=== PATIENT | female | born 1950 | race Caucasian/White ===

== ENCOUNTER 2017-05-18 23:42 | Inpatient (IN) ==
--- NOTE | 2017-05-19 00:25 | Emergency Department Note ---
Disposition Clinical Impression: Acute electrocardiogram changes, Choledocholithiasis, Cholecystitis, Transaminitis, Alcohol abuse Pancreatitis Qualifiers: Chronicity: acute Pancreatitis type: biliary Acute pancreatitis complication: unspecified Qualified Code(s): K85.10 - Biliary acute pancreatitis without necrosis or infection Disposition: Admitted As Inpatient Condition: Fair Chest Pain HPI - General Chief Complaint: ED Chest Pain Stated Complaint: chest pain Time Seen by Provider: 05/19/17 00:12 Source: patient, family Mode of arrival: private vehicle Limitations: no limitations Vital Signs Reviewed: Yes Nursing Notes Reviewed: Yes - History of Present Illness HPI Narrative: 67-year-old female history of alcohol abuse who presents to the ER with a chief complaint of chest pain. Patient reports pain began at 7:30 this evening. It started roughly half an hour after eating. She thought it might be reflux but it continued. States that the pain is at the bottom of her sternum and goes underneath both breasts and into her shoulders. Pain is somewhat reproducible on exam but still hurts whenever not pressing. States she felt lightheaded when it started area no history of cardiac disease. No other complaints. Pt complaint: chest pain Onset (ago): hour(s) Time: 19:30 Duration: constant Onset: after eating Pain Location: substernal Severity scale (1-10): 8 Quality: aching Pain Radiation: other (Shoulder) Improves with: nothing Worsens with: nothing Associated symptoms: Reports: dyspnea Treatments prior to arrival chest pain: none - Related Data On Oral Contraceptives: No Allergies Allergy/AdvReac Type Severity Reaction Status Date / Time No Known Allergies Allergy Verified 05/18/17 23:52 All systems ED: reviewed and negative except as stated. Cardiovascular: Reports: chest pain Respiratory: Denies: dyspnea Gastrointestinal: Denies: abdominal pain, nausea, vomiting Chest Pain PMH - Past Medical History Medical history: Reports: other Psychiatric history: Reports: depression - Social History Smoking Status: Former smoker Alcohol use: Reports: heavy Drug use: Reports: none Physical Exam - General Limitations: no limitations General appearance: alert, in no apparent distress - Head Head exam: atraumatic, normocephalic - Eye Eye exam: Present: normal appearance - ENT ENT exam: normal exam - Neck Neck exam: Present: normal inspection, full ROM - Chest Chest inspection: Present: normal inspection, symmetric chest wall rise - Respiratory Respiratory exam: Present: normal lung sounds bilaterally - Cardiovascular Cardiovascular exam: Present: regular rate, normal rhythm, normal heart sounds - Abdominal Exam Abdominal exam: Present: soft, Non-Tender. Absent: tenderness - Extremities Exam Extremities exam: Present: normal inspection, full ROM - Expanded Upper Extremity Exam Shoulder exam: Present: normal inspection, full ROM Arm exam: Present: normal inspection, full ROM Elbow exam: Present: normal inspection, full ROM Forearm/Wrist exam: Present: normal inspection, full ROM Hand exam: Present: normal inspection, full ROM - Expanded Lower Extremity Exam Hip/Pelvis exam: Present: normal inspection, full ROM Upper leg exam: Present: normal inspection, full ROM Knee exam: Present: normal inspection, full ROM Lower leg exam: Present: normal inspection, full ROM Ankle exam: Present: normal inspection, full ROM Foot/toe exam: Present: normal inspection, full ROM - Skin Skin exam: Present: warm, dry Course Course Narrative: Patient seen and examined. Repeat EKG due to concern for elevations. STEMI alert called at 12:16. - Reevaluation(s) Reevaluation #1: Interventional cardiology has been paged through the paging center. Time: 00:25 Reevaluation #2: Spoke with lab to see one troponin would be resulted. They report within 10-15 minutes. Time: 01:05 - Consultations Consultation #1: Spoke with the on-call inspector subassemblies Dr. Martinez. Sent the EKGs for interpretation. He requests to have the EKG repeated with the patient laying flat. Time: 00:30 Consultation #2: Spoke with Dr. Martinez after sending EKG with the patient laying flat. Patient's pain has changed from a 9 to an 8. Patient receiving a second sublingual nitroglycerin. We discussed the patient's presentation and inclination for ACS. She does have several confounding factors including postprandial onset of symptoms, atypical pain as well as some reproducibility. He recommends to continue the trial of nitroglycerin and give 250 mL bolus and call back in 10 minutes. Time: 00:56 Consultation #3: Spoke again with Dr. Martinez after results of troponin which is normal. Recommends GI cocktail and serial troponins. Admission to the hospitalist service with cardiology consultation. Additional Consultation(s): I spoke with the on-call surgeon Dr. Reed. Discussed the patient's history exam imaging and labs. CT with cholecystitis, choledocholithiasis and pancreatitis. Agreeable to see the patient in consultation. Vital Signs Temperature 98.1 F 05/18/17 23:46 Pulse Rate 80 05/18/17 23:46 Respiratory Rate 16 05/18/17 23:46 Blood Pressure 93/67 05/18/17 23:46 O2 Sat by Pulse Oximetry 98 05/18/17 23:46 Temperature 99.1 F 05/19/17 05:00 Pulse Rate 98 05/19/17 05:00 Respiratory Rate 18 05/19/17 05:16 Blood Pressure 129/82 05/19/17 05:16 O2 Sat by Pulse Oximetry 97 05/19/17 05:00 Oxygen Delivery Oxygen Delivery Room Air Chest Pain - MDM Narrative Medical decision making narrative: 67-year-old female presents to the ER due to chest pain. Started after eating this evening. STEMI alert was called as she had EKG changes from her previous. Case was discussed numerous times with the inspector subassemblies. Patient's troponin was initially resulted as normal and STEMI alert was canceled. Her pain did not resolve with nitroglycerin. During her workup she is noted to have a transaminitis as well as an elevated lipase and bilirubin. CT demonstrates cholecystitis, choledocholithiasis as well as pancreatitis. Case discussed with general surgery who will see in consultation. Admitted to the hospitalist service. - Lab Data Lab results reviewed: Yes I reviewed the patient's lab results. Result diagrams: 05/19/17 00:27 05/19/17 00:27 Lab Results 05/19/17 05/19/17 05/19/17 Range/Units 00:27 00:27 00:27 WBC 8.1 (4.3-11.1) K/mcL RBC 3.97 (3.82-4.97) M/mcL Hgb 12.7 (11.5-15.4) g/dL Hct 37.5 (35.3-44.9) % MCV 94.5 (83.0-100.0) fL MCH 32.0 (28.0-33.3) pg MCHC 33.9 (31.6-35.5) g/dL RDW 11.8 (11.5-14.5) % Plt Count 123 L (140-400) K/mcL MPV 8.4 L (9.4-12.4) fL Immature Gran % 0.7 (0-4) % Seg Neutrophils % 90.6 % Lymphocytes % 5.0 % Monocytes % 3.4 % Eosinophils % 0.1 % Basophils % 0.2 % Neutrophils # 7.3 (1.6-8.9) K/mcL Lymphocytes # 0.4 L (0.6-4.6) K/mcL Monocytes # 0.3 (0.0-1.3) K/mcL Eosinophils # 0.0 (0.0-0.6) K/mcL Basophils # 0.0 (0.0-0.2) K/mcL Immature Plt Fraction 1.8 (1.1-6.1) % PT (9.4-12.1) Seconds INR APTT (26.0-36.0) Seconds Sodium 132 L (136-145) mEq/L Potassium 2.7 L (3.5-5.1) mEq/L Chloride 94 L (98-107) mEq/L Carbon Dioxide 28 (23-29) mEq/L BUN 12 (8-23) mg/dL Creatinine 0.67 (0.60-1.20) mg/dL Est GFR ( Amer) > 60 (> 60) Est GFR (Non-Af Amer) > 60 (> 60) BUN/Creatinine Ratio 18 (6-26) Glucose 158 H (70-105) mg/dL Calculated Osmolality 277 L (280-300) Calcium 9.0 (8.6-10.3) mg/dL Total Bilirubin 2.7 H (0.3-1.0) mg/dL Direct Bilirubin 1.8 H (0.0-0.2) mg/dL Indirect Bilirubin 0.9 (0.0-1.2) mg/dL AST 405 H (13-39) Units/L ALT 155 H (7-52) Units/L Alkaline Phosphatase 118 H (34-104) Units/L Troponin I < 0.03 (< 0.04) ng/mL Serum Total Protein 6.4 (6.4-8.9) g/dL Albumin 3.9 (3.5-5.7) g/dL Globulin 2.5 (2.4-3.5) g/dL Albumin/Globulin Ratio 1.6 (1.1-2.2) Lipase > 1800 H (11-82) Units/L Ethyl Alcohol < 10 (0-10) mg/dL 18 05/19/17 Range/Units 00:27 02:07 WBC (4.3-11.1) K/mcL RBC (3.82-4.97) M/mcL Hgb (11.5-15.4) g/dL Hct (35.3-44.9) % MCV (83.0-100.0) fL MCH (28.0-33.3) pg MCHC (31.6-35.5) g/dL RDW (11.5-14.5) % Plt Count (140-400) K/mcL MPV (9.4-12.4) fL Immature Gran % (0-4) % Seg Neutrophils % % Lymphocytes % % Monocytes % % Eosinophils % % Basophils % % Neutrophils # (1.6-8.9) K/mcL Lymphocytes # (0.6-4.6) K/mcL Monocytes # (0.0-1.3) K/mcL Eosinophils # (0.0-0.6) K/mcL Basophils # (0.0-0.2) K/mcL Immature Plt Fraction (1.1-6.1) % PT 10.7 (9.4-12.1) Seconds INR 1.0 APTT 20.5 L (26.0-36.0) Seconds Sodium (136-145) mEq/L Potassium (3.5-5.1) mEq/L Chloride (98-107) mEq/L Carbon Dioxide (23-29) mEq/L BUN (8-23) mg/dL Creatinine (0.60-1.20) mg/dL Est GFR ( Amer) (> 60) Est GFR (Non-Af Amer) (> 60) BUN/Creatinine Ratio (6-26) Glucose (70-105) mg/dL Calculated Osmolality (280-300) Calcium (8.6-10.3) mg/dL Total Bilirubin (0.3-1.0) mg/dL Direct Bilirubin (0.0-0.2) mg/dL Indirect Bilirubin (0.0-1.2) mg/dL AST (13-39) Units/L ALT (7-52) Units/L Alkaline Phosphatase (34-104) Units/L Troponin I < 0.03 (< 0.04) ng/mL Serum Total Protein (6.4-8.9) g/dL Albumin (3.5-5.7) g/dL Globulin (2.4-3.5) g/dL Albumin/Globulin Ratio (1.1-2.2) Lipase (11-82) Units/L Ethyl Alcohol (0-10) mg/dL - Radiology Data Radiology results reviewed: Yes I reviewed the patient's radiology results. Chest X-Ray 05/19/17 00:01 IMPRESSION: 1. No acute cardiopulmonary disease. D/ / Luis Miguel Reardon MD / Luis Miguel Reardon MD Interpreting Provider: Luis Miguel Reardon MD - EKG Data EKG attestation: Yes I reviewed and interpreted this EKG. EKG results narrative: EKG demonstrates sinus rhythm with a rate of 80 bpm. Left axis deviation. Normal intervals. Normal R-wave progression. There are ST elevations in leads V1 and V2. No ST depressions. Changes from previous EKG include ST elevations in the anterior leads from 03/11/01. Repeat EKG at 00:16 demonstrates sinus rhythm with a rate of 82 bpm. Left axis deviation. Worsening ST elevations in the anterior leads of V1 and V2. No ST depressions. STEMI Heart Score - Score History: Slightly Suspicious EKG: Non Specific repolarisation Disturbance Age: Greater than 65 Risk Factors: No risk factors known Troponin: Less than normal limit HEART Score Total: 3 Critical Care Time Critical Care Time: Yes Total Critical Care Time: 60 Attestation: Critical care performed: Time is exclusive of separately billable procedures. Time includes: direct patient care, patient reassessment, coordination of patient care, interpretation of data (laboratory data, radiology data, and respiratory data), review of patient's medical records, medical consultation and documentation of patient care. Procedures included in critical care time: Procedures excluded from critical care time: S.B.A.R. - S.B.A.R. Situation: Demographics, MOA Background: Presenting Complaint, Relevant PMH, Meds, & Allergies Assessment: Course and respsone to treatment, Exam Concerns, Patient/Family Expectation, Pertinant Lab Results Recommendation: Barrier(s) to disposition, Recommendation based on pending studies, treatments, or consults S.B.A.R. Report Given to: Dr. Callie Marrero Repor Time: 04:21 Attestation Statement - Attestation Attestation: I, Jose Delgadillo MD, personally evaluated this patient and discussed their management with the resident physician. I reviewed the resident's note and agree with the documented findings, medical decision making, and plan of care. 67-year-old female presents to the emergency Department by private vehicle with a complaint of bilateral lower chest pain which started about 4-40 Hours prior to arrival. Pain started about a half hour after eating dinner. Patient really unable to describe the pain. It is in the lower chest and radiates under the breast bilaterally. Also to the back. There has been some mild nausea but no vomiting. No diaphoresis however patient states that earlier in the day she had a brief episode of diaphoresis. No palpitations. No shortness of breath. No prior history of any heart disease. Patient is not on any medications. She is a nonsmoker. No history of diabetes or hypertension. She states her blood pressure normally runs low. She has alcoholic and states that about a week ago she "fell off the wagon" and drank a lot over a 3 or 4 day period. She has not had any alcohol for about the past 3 days. On examination patient is a well-developed well-nourished well-appearing elderly female in no acute distress. She is alert and oriented 3. There is no cyanosis or diaphoresis. Chest is nontender to palpation. Breath sounds are decreased but equal bilaterally with no rales or wheezes noted. Heart regular rate and rhythm. Abdomen soft and nontender with normal bowel sounds. Labs reviewed. Chest x-ray negative. Initial EKG in triage shows ST segment elevations in V1 and V2 which appear acute and are not present on a previous EKG although the prior EKG is from about 16 years ago. Patient was immediately brought back to a bed and a repeat EKG obtained which confirms the STEMI changes in V1 and V2 and in fact they appear worse than the initial EKG. A STEMI alert was called. The inspector subassemblies has not responded to the initial STEMI alert and was re-paged. After responding he was sent the EKGs for evaluation. He requested a 250 mL bolus and further nitroglycerin and obtain an EKG with patient supine. This was done. Catheter lab team showed up in the emergency Department take patient to [facility] however we are still awaiting the guide changer final decision. After an extended period the guide changer recommended serial troponins and admission by the hospitalist and the STEMI alert was canceled. Further workup revealed pancreatitis with elevated hepatic enzymes. A CT of the abdomen and pelvis was obtained and showed cholelithiasis and choledocholithiasis with acute cholecystitis, biliary ductal dilation, and subtle findings suggesting acute pancreatitis. Dr. Graham discussed with the surgeon on-call, Dr. Reed. The hospitalist, Dr. Ledesma , was consulted and accepted admission of the patient.
[2017-05-19] MEDS ORDERED: Aspirin 325 MG TABLET PO ONE (00:31)
[2017-05-19] MEDS ORDERED: *HR* Ticagrelor 90 MG TABLET PO ONE (00:31)
[2017-05-19 00:34] LABS: Monocytes % 3.4 %; Segmented Neutrophils % 90.6 %
[2017-05-19 00:36] LABS: Basophils % 0.2 %; Eosinophils % 0.1 %; Hematocrit 37.5 % (35.3-44.9); Hemoglobin 12.7 g/dL (11.5-15.4); Immature Granulocytes % 0.7 % (0-4); Immature Platelets 1.8 % (1.1-6.1); Lymphocytes # 0.4 K/mcL (0.6-4.6); Mean Corpuscular HGB Conc 33.9 g/dL (31.6-35.5); Mean Corpuscular Volume 94.5 fL (83.0-100.0); Mean Platelet Volume 8.4 fL (9.4-12.4); Monocytes # 0.3 K/mcL (0.0-1.3); Neutrophils # 7.3 K/mcL (1.6-8.9); Platelet Count 123 K/mcL (140-400); Red Blood Count 3.97 M/mcL (3.82-4.97); Red Cell Distribution Width 11.8 % (11.5-14.5)
[2017-05-19] MEDS: Nitroglycerin 0.4 MG TAB.SUBL SL PRN ×4 (00:37→01:14)
[2017-05-19] MEDS ORDERED: *HR* Midazolam HCl 5 MG/5 ML VIAL IVP ONE (00:42)
[2017-05-19] MEDS ORDERED: *HR* Heparin 10,000 UNIT/10 ML VIAL ONE (00:43)
[2017-05-19] MEDS ORDERED: ISOVUE-370 200 ML INFUS..BTL IV ONE ×2 (00:43→00:47)
[2017-05-19] MEDS ORDERED: Heparin 1,000 UNITS/500 mL 500 ML ONE (00:43)
[2017-05-19] MEDS ORDERED: Nitroglycerin 1,000 MCG/10 ML VIAL IV ONE (00:43)
[2017-05-19] MEDS ORDERED: 0.9 % Sodium Chloride 2,000 ML ONE (00:43)
[2017-05-19 00:48] LABS: Prothrombin Time 10.7 Seconds (9.4-12.1)
[2017-05-19 00:51] LABS: Alanine Aminotransferase 155 Units/L (7-52); Albumin 3.9 g/dL (3.5-5.7); Albumin/Globulin Ratio 1.6 (1.1-2.2); Alkaline Phosphatase 118 Units/L (34-104); Aspartate Amino Transferase 405 Units/L (13-39); BUN/Creatinine Ratio 18 (6-26); Bilirubin,Direct 1.8 mg/dL (0.0-0.2); Bilirubin,Indirect 0.9 mg/dL (0.0-1.2); Bilirubin,Total 2.7 mg/dL (0.3-1.0); Blood Urea Nitrogen 12 mg/dL (8-23); Carbon Dioxide 28 mEq/L (23-29); Chloride 94 mEq/L (98-107); Globulin 2.5 g/dL (2.4-3.5); Glucose 158 mg/dL (70-105); Osmolality,Calculated 277 (280-300); Potassium 2.7 mEq/L (3.5-5.1); Sodium 132 mEq/L (136-145); Total Protein 6.4 g/dL (6.4-8.9); eGFR For African Americans > 60 (> 60); eGFR For Non-African Americans > 60 (> 60)
[2017-05-19] MEDS ORDERED: 0.9 % Sodium Chloride 250 ML IVC ONE (00:54)
[2017-05-19 00:59] LABS: Activated Partial Thrombo Time 20.5 Seconds (26.0-36.0)
[2017-05-19 01:02] LABS: Ethanol < 10 mg/dL (0-10)
[2017-05-19] MEDS ORDERED: Ondansetron 4 MG/2 ML VIAL IVP ONE (01:06)
[2017-05-19] MEDS ORDERED: GI Cocktail 40 ML EACH PO ONE (01:52)
[2017-05-19] MEDS ORDERED: *HR* Morphine 2 MG/ML SYRINGE IVP ONE ×2 (02:14)
[2017-05-19 02:51] LABS: Lipase > 1800 Units/L (11-82)
[2017-05-19] MEDS ORDERED: Piperacillin/Tazobactam 3.375 GM in 0.9 % Sodium Chloride Mini Bag 100 ML IVPB ONE (04:21)
[2017-05-19] MEDS ORDERED: 0.9 % Sodium Chloride 1,000 ML IVC SCH (04:30)
[2017-05-19] MEDS ORDERED: Naloxone 0.4 MG/ML INJ IVP PRN (05:26)
--- NOTE | 2017-05-19 05:35 | Internal Med History&Physical ---
Date of Encounter: 05/19/17 Time of Encounter: 05:00 Assessment and Plan (1) Cholecystitis Current visit: Yes Status: Acute Secondary to cholelithiasis. Surgery consulted from ED, appreciate assistance - Continue zosyn started in ED - Gen Surgery consulted, appreciate assistance - Patient NPO (2) Pancreatitis Current visit: Yes Status: Acute Lipase markedly elevated. Secondary to cholelithiasis and component of alcoholism. - Aggressive IV fluid resuscitation - 500ccs/6 hours then 250ccs/hr thereafter - NPO - IV morphine PRN pain Qualifiers: Chronicity: acute Pancreatitis type: biliary Acute pancreatitis complication: unspecified Qualified Code(s): K85.10 - Biliary acute pancreatitis without necrosis or infection (3) Acute electrocardiogram changes Current visit: Yes Status: Acute ST elevations in V1 and V2 which are new from previous EKG. Pain secondary to pancreatitis/cholecystitis and troponin undetectable x2 - Cardiology consulted from ED, appreciate assistance (4) Transaminitis Current visit: Yes Status: Acute Secondary to cholelithiasis/pancreatits/alcohol abuse - Trend LFTs (5) Alcohol abuse Current visit: Yes Status: Acute CIWA protocol ordered. (6) Hypokalemia Current visit: Yes Status: Acute K 2.7. Check magnesium level and replace if low. - IV KCl 40meq ordered, will need recheck and continued replacement throughout the day Internal Medicine - H&P: HPI Chief complaint: Epigastric pain Admitted From: Emergency Dept Plans for Post Hospital Care: Home History of present illness: Ms. Montiel is a 67 year old female with history of alcohol abuse who presented to the ED this evening with complaint of severe epigastric/RUQ pain which developed shortly after eating dinner. She states that she had been sober for some time, but then over the past few weeks began drinking alcohol again. Yesterday she ate macaroni and cheese for dinner and shortly afterwards began to have severe RUQ and epigastric pain. She presented to the ED where there was concern for ST elevations on V1 and V2 and STEMI alert was called. Troponin was normal and pain did not improve with nitro. Her lipase was found to be markedly elevated and the CT abdomen and pelvis showed cholecystitis, choledocholithiasis and mild pancreatitis. She was given morphine which improved her pain from 9/10 to 4/10. She denies history of cardiac or pulmonary disease. She follows with a PCP and states that she is overall healthy. She has not had fever or chills. She denies history of pancreatitis in the past. Past Med Surg Social Fam HX - Past Medical History Medical history: other Psychiatric history: depression - Social History Smoking Status: Former smoker Smokeless Tobacco Status: No Alcohol use: heavy Drug use: none - Family History Mother Living Status: Age at : 71 Cause of : Cancer Hx Family Cancer: Yes Internal Medicine - H&P: Meds 3 Allergy/AdvReac Type Severity Reaction Status Date / Time No Known Allergies Allergy Verified 05/18/17 23:52 All Systems PM: A 10-system review of systems was performed and is negative for pertinent findings except as documented above in the HPI. - Constitutional Vitals: Temp Pulse Resp BP Pulse Ox 99.1 F 98 18 129/82 97 05/19/17 05:00 05/19/17 05:00 05/19/17 05:16 05/19/17 05:16 05/19/17 05:00 General appearance: Present: A&O X 3, pleasant, no acute distress - Head Head exam: Present: atraumatic - Eye Eye exam: Present: EOMI - ENT ENT exam: Present: mucous membranes dry - Neck Neck exam general surgery: Present: supple - Respiratory Respiratory exam: Present: CTAB - Cardiovascular Cardiovascular exam: Present: RRR. Absent: diastolic murmur, gallop, rubs, systolic murmur - GI/Abdominal GI/Abdominal exam: Present: normal bowel sounds, soft, tenderness. Absent: distended Additional comments: Tender right upper quadrant and epigastric area. - Extremities Exam Extremities exam: Absent: pedal edema - Neurological Exam Neurological exam: Present: no focal deficits - Skin Skin exam: Absent: rash Internal Med - H&P Results - Labs CBC & Chem 7: 05/19/17 00:27 05/19/17 00:27
[2017-05-19] MEDS: 0.9 % Sodium Chloride 1,000 ML IVC SCH ×6 (05:54→23:21)
[2017-05-19] MEDS ORDERED: *HR* LORazepam 2 MG/ML VIAL IVP PRN ×3 (06:09)
[2017-05-19] MEDS: *HR* Morphine 2 MG/ML SYRINGE IVP PRN ×2 (07:55→13:57)
--- NOTE | 2017-05-19 11:15 | Cardiology Consult Note ---
Date of Encounter: 05/19/17 Time of Encounter: 11:13 Assessment and Plan (1) Abnormal ECG Current Visit: Yes Status: Acute 67-year-old female presents with complaints of upper abdominal pain. CT abdomen and pelvis streets findings suggestive of acute cholecystitis and possible pancreatitis. ECG performed, which demonstrates a possible right ventricular conduction delay with associated ST-T changes, suggested of Brugada pattern. Patient denies any history of palpitations. She has had 3 syncopal events in her life. ECG findings appear to be unrelated to patient's acute problem, which appears to be acute cholecystitis. Recommended echocardiogram. If no significant findings, then no further cardiac workup appears to be necessary at this time. Recommend followup with EP/Dr. Juan Goel as outpatient. Of note, patient's functional capacity prior to this illness was good. Able to perform normal activities without chest pain. Discussion w patient/family: The assessment and plan as outlined above was discussed with the patient and/or family members who expressed understanding and agreement. All questions were answered. Thank you for involving us in the care of your patient. Please call with any questions. History of Present Illness Consult date: 05/19/17 Requesting physician: Marylu Patiño Consult reason: Abnormal ecg Chief complaint: Abnormal ecg History of present illness: Ms. Montiel is a 67 year old female with no known history of heart disease. States she developed sudden pain across her upper abdomen after eating yesterday. She denies pain in her chest. Presented to the ER with these complaints. ECG performed, which demonstrated abnormalities in V1 and V2. Findings reviewed with landfill grader. Serial troponin regimens are negative. Patient reports abdominal pain better, but reproducible with palpation. No chest pain reported. She has never required a stress test or cardiac catheterization in the past. Past Med Surg Social Fam HX - Past Medical History Medical history: other Psychiatric history: depression - Social History Smoking Status: Former smoker Smokeless Tobacco Status: No Alcohol use: heavy Drug use: none - Family History Mother Living Status: Age at : 71 Cause of : Cancer Hx Family Cancer: Yes Medications and Allergies 3 Allergy/AdvReac Type Severity Reaction Status Date / Time No Known Allergies Allergy Verified 05/18/17 23:52 All Systems Review: A 10-system review of systems was performed and is negative for pertinent findings except as documented above in the HPI. - Cardiovascular Cardiovascular: as per HPI - Gastrointestinal Gastrointestinal: abdominal pain Physical Examination Vital Signs, Last 4 Hours Temp Pulse Resp BP Pulse Ox 05/19/17 08:30 97.9 F 83 17 106/74 97 General: Conversant, No Apparent Distress HEENT: Atraumatic, Normocephaly, Mucus Membranes Moist Neck: No JVD, Normal carotid pulses Cardiac: Reg Rate and Rhythm, Normal S1 and S2, No Murmur Lungs: Normal Breath Sounds, No Wheeze, Rales, Rhonchi Neuro: Alert and responsive, No focal deficits noted Abdomen: Soft, Other (Reproducible tenderness in the right upper quadrant with palpation.) Skin: No rashes noted on visualized skin Musculoskeletal: No Chest Wall Tenderness Extremities: No Clubbing, No Cyanosis, No Edema Results 05/19/17 00:27 05/19/17 00:27 Lab Results 05/19/17 05/19/17 05:41 05:41 Magnesium 1.3 L Troponin I < 0.03 - Imaging and Cardiology Echo: pending - EKG Interpretation EKG results cardiology: personally reviewed Consult Discharge Plan - Plan Referrals: Cherry Collins MD [Primary Care Provider] -
--- NOTE | 2017-05-19 11:34 | General Surgery Consult Note ---
<Judi Grove Erick - Last Filed: 05/19/17 11:54> Date of Encounter: 05/19/17 Time of Encounter: 11:31 Assessment and Plan (1) Cholecystitis Current Visit: Yes Status: Acute CT scan of abdomen and pelvis on 05/19/2017 shows cholelithiasis and choledocholithiasis with acute cholecystitis, biliary ductal dilatation, and subtle findings suggestive of acute pancreatitis. -Conjugated hyperbilirubinemia (total bili 2.7, direct bili 1.8), transaminitis (405 AST, 155 ALT), alkaline phosphatase 118 and lipase greater than 1800. -Ethyl alcohol less than 10. Plan for today: -We will repeat the abdominal ultrasound to evaluate the stone. -If stone is passed on repeat ultrasound, patient to the OR today. If not, we will decide between ERCP versus intraoperative cholangiogram versus open cholecystectomy. -Continue Zosyn. -And to replete electrolytes. -Patient nothing by mouth (2) Pancreatitis Current Visit: Yes Status: Acute See managment as per above. -Pain control and anti-emetics. -CIWA protocol. Qualifiers: Chronicity: acute Pancreatitis type: biliary Acute pancreatitis complication: unspecified Qualified Code(s): K85.10 - Biliary acute pancreatitis without necrosis or infection (3) Choledocholithiasis Current Visit: Yes Status: Acute Seen management as per above. -Follow-up repeat abdominal ultrasound. (4) Transaminitis Current Visit: Yes Status: Acute Patient on CIWA protocol. -Labs and imaging suggestive of biliary obstruction. -See management as per above. (5) Alcohol abuse Current Visit: Yes Status: Acute History of Present Illness Consult date: 05/19/17 Reason for consult: other (Cholecystitis) Requesting physician: Filiberto Graham History of present illness: Ms. Montiel is a 67-year-old female who presented to [facility] on 05/19/2017 with complaints of upper abdominal pain. She states that her abdominal pain started in the epigastric area with radiation into the right upper quadrant. This pain developed shortly after eating dinner just prior to arrival. CT of the abdomen and pelvis obtained in the emergency department demonstrated findings suggestive of acute cholecystitis and possible pancreatitis. Lipase was markedly elevated. ECG in the ED showed ST elevations in V1 and V2. Troponins were negative and pain did not improve with nitroglycerin. Cardiology has been consulted and is following the patient. Patient reports drinking heavily over the past few weeks after being abstinent from alcohol for a short period. Patient states her pain is improved with morphine. She denies fevers or chills. She denies nausea or vomiting. She denies hematochezia, melena, hematuria, or dysuria. She denies chest pain, palpitations, shortness of breath, or diaphoresis. Past Med Surg Social Fam HX - Past Medical History Attestation: Yes The following information was validated with the patient. Source: patient, old records reviewed Medical history: other Psychiatric history: depression - Social History Smoking Status: Former smoker Smokeless Tobacco Status: No Alcohol use: heavy Drug use: none - Family History Mother Living Status: Age at : 71 Cause of : Cancer Hx Family Cancer: Yes Medications and Allergies 3 Allergy/AdvReac Type Severity Reaction Status Date / Time No Known Allergies Allergy Verified 05/18/17 23:52 Review of Systems All systems PM: A 10-system review of systems was performed and is negative for pertinent findings except as documented above in the HPI. - Constitutional no anorexia, no fatigue, no fever(s) - Cardiovascular no chest pain, no chest pain at rest, no chest pain with activity, no diaphoresis, no dyspnea, no dyspnea on exertion, no irregular heart rhythm, no radiating jaw, neck or arm pain, no palpitations - Gastrointestinal abdominal pain, no change in bowel habits, no change in stool character, no coffee ground emesis, no hematemesis, no hematochezia, no loose stools, no melena, no nausea, no vomiting - Genitourinary Genitourinary: no dysuria, no flank pain, no urinary urgency General Surgery Exam Initial Vital Signs Temp Pulse Resp BP Pulse Ox 98.1 F 80 16 93/67 98 05/18/17 23:46 05/18/17 23:46 05/18/17 23:46 05/18/17 23:46 05/18/17 23:46 - General physical appearance well developed, well nourished - Neck trachea midline - Respiratory normal expansion, normal respiratory effort, clear to auscultation - Cardiovascular Cardiovascular exam: Present: RRR, no murmurs/rubs/gallops - Abdomen Abdomen general surgery: Present: bowel sounds present, soft, tender (Right upper quadrant and epigastric area). Absent: guarding, rebound, rigid Hernia: Present: none - Neurologic Present: CN 2-12 grossly intact, normal coordination, normal sensation - Psychiatric Psychiatric general surgery: Present: A&Ox3, oriented to person, oriented to place, speech is normal, memory intact Exam Initial Vital Signs Temp Pulse Resp BP Pulse Ox 98.1 F 80 16 93/67 98 05/18/17 23:46 05/18/17 23:46 05/18/17 23:46 05/18/17 23:46 05/18/17 23:46 Results - Labs 05/19/17 00:27 05/19/17 00:27 Abnormal lab results Plt Count 123 K/mcL (140-400) L 05/19/17 00:27 MPV 8.4 fL (9.4-12.4) L 05/19/17 00:27 Lymphocytes # 0.4 K/mcL (0.6-4.6) L 05/19/17 00:27 APTT 20.5 Seconds (26.0-36.0) L 05/19/17 00:27 Sodium 132 mEq/L (136-145) L 05/19/17 00:27 Potassium 2.7 mEq/L (3.5-5.1) L 05/19/17 00:27 Chloride 94 mEq/L (98-107) L 05/19/17 00:27 Glucose 158 mg/dL (70-105) H 05/19/17 00:27 Calculated Osmolality 277 (280-300) L 05/19/17 00:27 Magnesium 1.3 mg/dL (1.6-2.6) L 05/19/17 05:41 Total Bilirubin 2.7 mg/dL (0.3-1.0) H 05/19/17 00:27 Direct Bilirubin 1.8 mg/dL (0.0-0.2) H 05/19/17 00:27 AST 405 Units/L (13-39) H 05/19/17 00:27 ALT 155 Units/L (7-52) H 05/19/17 00:27 Alkaline Phosphatase 118 Units/L (34-104) H 05/19/17 00:27 Lipase > 1800 Units/L (11-82) H 05/19/17 00:27 All other labs normal. Consult Discharge Plan - Plan Referrals: Cherry Collins MD [Primary Care Provider] - <Brett Reed - Last Filed: 05/19/17 15:03> Date of Encounter: 05/19/17 Review of Systems All systems PM: A 10-system review of systems was performed and is negative for pertinent findings except as documented above in the HPI. General Surgery Exam Initial Vital Signs Temp Pulse Resp BP Pulse Ox 98.1 F 80 16 93/67 98 05/18/17 23:46 05/18/17 23:46 05/18/17 23:46 05/18/17 23:46 05/18/17 23:46 Exam Initial Vital Signs Temp Pulse Resp BP Pulse Ox 98.1 F 80 16 93/67 98 05/18/17 23:46 05/18/17 23:46 05/18/17 23:46 05/18/17 23:46 05/18/17 23:46 Results - Labs 05/19/17 00:27 05/19/17 00:27 Abnormal lab results Plt Count 123 K/mcL (140-400) L 05/19/17 00:27 MPV 8.4 fL (9.4-12.4) L 05/19/17 00:27 Lymphocytes # 0.4 K/mcL (0.6-4.6) L 05/19/17 00:27 APTT 20.5 Seconds (26.0-36.0) L 05/19/17 00:27 Sodium 132 mEq/L (136-145) L 05/19/17 00:27 Potassium 2.7 mEq/L (3.5-5.1) L 05/19/17 00:27 Chloride 94 mEq/L (98-107) L 05/19/17 00:27 Glucose 158 mg/dL (70-105) H 05/19/17 00:27 Calculated Osmolality 277 (280-300) L 05/19/17 00:27 Magnesium 1.3 mg/dL (1.6-2.6) L 05/19/17 05:41 Total Bilirubin 4.1 mg/dL (0.3-1.0) H 05/19/17 05:41 Direct Bilirubin 2.8 mg/dL (0.0-0.2) H 05/19/17 05:41 Indirect Bilirubin 1.3 mg/dL (0.0-1.2) H 05/19/17 05:41 AST 405 Units/L (13-39) H 05/19/17 00:27 ALT 155 Units/L (7-52) H 05/19/17 00:27 Alkaline Phosphatase 118 Units/L (34-104) H 05/19/17 00:27 Troponin I 0.08 ng/mL (< 0.04) H* 05/19/17 11:39 Lipase > 1800 Units/L (11-82) H 05/19/17 00:27 All other labs normal. - Attending Attestation I have personally seen and examined the patient. I have reviewed pertinent labs , imaging, progress notes, including this one. I agree with the above assessment and plan and wish to include the following... 67F with choledocholithiasis, GS pancreatitis; currently without pain, but with increase in T bili; AF VSS; currently NPO and on abx; unable to secure ERCP today; will cont to monitor closely and plan for ERCP on sunday;
[2017-05-19 12:42] LABS: Bilirubin,Direct 2.8 mg/dL (0.0-0.2); Bilirubin,Indirect 1.3 mg/dL (0.0-1.2); Bilirubin,Total 4.1 mg/dL (0.3-1.0)
--- NOTE | 2017-05-19 13:17 | Event Note ---
Date of Encounter: 05/19/17 Time of Encounter: 11:00 Patient was seen and examined. Admitted with acute pancreatitis. Initially there was a questionable STEMI alert cold which was canceled. The patient's pain is well-controlled. She has finding of acute cholecystitis/cholelithiasis/ choledocholithiasis. Surgery and cardiology are following. Continue with IV fluids/antiemetics/pain control. Keep patient nothing by mouth. Trend cardiac enzymes.
[2017-05-19 15:24] LABS: Magnesium 1.4 mg/dL (1.6-2.6); Potassium 3.4 mEq/L (3.5-5.1)
[2017-05-19] MEDS ORDERED: Potassium Chloride 40 MEQ, Lidocaine 1% 2 ML in D5% in Water 500 ML IVPB ONE (17:20)
[2017-05-20 05:13] LABS: Basophils % 0.2 %; Eosinophils % 0.2 %; Hematocrit 33.5 % (35.3-44.9); Hemoglobin 10.9 g/dL (11.5-15.4); Immature Granulocytes % 0.6 % (0-4); Lymphocytes # 0.5 K/mcL (0.6-4.6); Lymphocytes % 10.5 %; Mean Corpuscular HGB Conc 32.5 g/dL (31.6-35.5); Mean Corpuscular Hemoglobin 32.2 pg (28.0-33.3); Mean Corpuscular Volume 98.8 fL (83.0-100.0); Mean Platelet Volume 9.2 fL (9.4-12.4); Monocytes # 0.4 K/mcL (0.0-1.3); Monocytes % 8.8 %; Neutrophils # 3.9 K/mcL (1.6-8.9); Platelet Count 84 K/mcL (140-400); Red Blood Count 3.39 M/mcL (3.82-4.97); Red Cell Distribution Width 12.2 % (11.5-14.5); Segmented Neutrophils % 79.7 %
[2017-05-20 05:31] LABS: Alanine Aminotransferase 377 Units/L (7-52); Albumin 3.2 g/dL (3.5-5.7); Albumin/Globulin Ratio 1.6 (1.1-2.2); Alkaline Phosphatase 106 Units/L (34-104); Aspartate Amino Transferase 607 Units/L (13-39); BUN/Creatinine Ratio 14 (6-26); Blood Urea Nitrogen 6 mg/dL (8-23); Calcium 7.3 mg/dL (8.6-10.3); Carbon Dioxide 20 mEq/L (23-29); Chloride 107 mEq/L (98-107); Glucose 103 mg/dL (70-105); Osmolality,Calculated 276 (280-300); Potassium 3.3 mEq/L (3.5-5.1); Sodium 134 mEq/L (136-145); Total Protein 5.2 g/dL (6.4-8.9); eGFR For African Americans > 60 (> 60); eGFR For Non-African Americans > 60 (> 60)
[2017-05-20] MEDS: 0.9 % Sodium Chloride 1,000 ML IVC SCH ×2 (07:53→15:53)
[2017-05-20] MEDS ORDERED: Potassium Chloride 40 MEQ, Lidocaine 1% 2 ML in D5% in Water 500 ML IVPB ONE (10:35)
--- NOTE | 2017-05-20 10:39 | Internal Med Progress Note ---
Date of Encounter: 05/20/17 Time of Encounter: 10:36 - Assessment and plan (1) Abnormal ECG Current Visit: Yes Status: Acute Assessment and plan: Being followed by cardiology. Troponins are elevated at 0.08 and 0.15. We will repeat a troponin level now. An echocardiogram is pending. EKG finding of consistent with possibly Brugada syndrome per cardiology's note. She may need an EP outpatient follow-up. (2) Cholecystitis Current Visit: Yes Status: Acute Assessment and plan: Continue and control and antiemetics. Surgery is following. (3) Choledocholithiasis Current Visit: Yes Status: Acute Assessment and plan: Patient would need an ERCP. I will consult GI. Remains nothing by mouth. Continue empiric antibiotics (4) Pancreatitis Current Visit: Yes Status: Acute Assessment and plan: Continue IV fluids. Continue patient-controlled. Continue antiemetics. Qualifiers: Chronicity: acute Pancreatitis type: biliary Acute pancreatitis complication: unspecified Qualified Code(s): K85.10 - Biliary acute pancreatitis without necrosis or infection (5) DVT prophylaxis Current Visit: Yes Status: Acute Assessment and plan: SCDs - Subjective Interval history: No acute events. The patient was seen and examined. She is afebrile. She was admitted with acute pancreatitis likely secondary to acute cholecystitis/ choledocholithiasis. Pain is well controlled. Seen by surgery. No nausea or vomiting. Remains nothing by mouth. - Constitutional Vitals: Temp Pulse Resp BP Pulse Ox 98.4 F 81 16 134/84 96 05/20/17 08:19 05/20/17 08:19 05/20/17 08:19 05/20/17 08:19 05/20/17 08:19 General appearance: Present: A&O X 3, pleasant, no acute distress Exam: GEN: NAD CVS: RRR. S1, S2, No m/r/g RESP: CTAB ABD: Soft, NT, right upper quadrant tenderness, +BS EXT: No edema. 2+ DP. No rashes NEURO: Nonfocal Internal Medicine: Result - Labs CBC & Chem 7: 05/20/17 04:37 05/20/17 04:37 Labs: Short CBC 05/20/17 Range/Units 04:37 WBC 4.9 (4.3-11.1) K/mcL Hgb 10.9 L D (11.5-15.4) g/dL Hct 33.5 L (35.3-44.9) % Plt Count 84 L (140-400) K/mcL Neutrophils # 3.9 (1.6-8.9) K/mcL BMP 05/19/17 05/20/17 11:39 04:37 Sodium 134 L Potassium 3.4 L D 3.3 L Chloride 107 Carbon Dioxide 20 L BUN 6 L Creatinine 0.44 L Glucose 103 Calcium 7.3 L Cardiac Enzymes 05/19/17 05/19/17 Range/Units 11:39 17:22 Troponin I 0.08 H* 0.15 H* (< 0.04) ng/mL Liver Function 05/20/17 Range/Units 04:37 Total Bilirubin 3.0 H (0.3-1.0) mg/dL AST 607 H (13-39) Units/L ALT 377 H (7-52) Units/L Alkaline Phosphatase 106 H (34-104) Units/L Albumin 3.2 L (3.5-5.7) g/dL - ABG Interpretation ABG results: PT/INR, D-dimer PT 10.7 Seconds (9.4-12.1) 05/19/17 00:27 Consult Discharge Plan - Plan Referrals: Cherry Collins MD [Primary Care Provider] -
[2017-05-20] MEDS ORDERED: Ondansetron 4 MG/2 ML VIAL IVP PRN (10:41)
--- NOTE | 2017-05-20 12:02 | Cardiology Progress Note ---
Date of Encounter: 05/20/17 Time of Encounter: 09:15 Assessment and Plan (1) Elevated troponin Current Visit: Yes Status: Acute Per cardiology: -Troponins negative x3, then 0.08, 0.15, 0.12 in the setting of acute cholecystitis and pancreatitis -Denies chest pain. -no ischemic ECG changes. -TTE pending. -Do not suspect NSTEMI, suspect demand ischemia related to above. NO cardiac rehab warranted. -Further recommendations pending TTE. If not significant finding on TTE, anticipate cardiology sign off. (2) Abnormal ECG Current Visit: Yes Status: Acute Per cardiology: -67-year-old female presents with complaints of upper abdominal pain. CT abdomen and pelvis streets findings suggestive of acute cholecystitis and possible pancreatitis. -ECG performed, which demonstrates a possible right ventricular conduction delay with associated ST-T changes, suggested of Brugada pattern. -Patient denies any history of palpitations. -She has had 3 syncopal events in her life. -ECG findings appear to be unrelated to patient's acute problem, which appears to be acute cholecystitis. -Recommended echocardiogram. TTE pending. -If no significant findings, then no further cardiac workup appears to be necessary at this time. Recommend followup with EP/Dr. Juan Goel as outpatient. -Of note, patient's functional capacity prior to this illness was good. Able to perform normal activities without chest pain. Discussion w patient/family: The assessment and plan as outlined above was discussed with the patient who expressed understanding and agreement. All questions were answered. Thank you for involving us in the care of your patient. Please call with any questions. Discussed and reviewed with . Subjective Principal diagnosis: cholecystitis Interval history: Patient denies chest pain. Objective Vital Signs, Last 4 Hours Temp Pulse Resp BP Pulse Ox 05/20/17 11:37 98.2 F 83 16 139/90 96 05/20/17 08:19 98.4 F 81 16 134/84 96 General: Conversant, No Apparent Distress HEENT: Atraumatic, Normocephaly, Mucus Membranes Moist Neck: No JVD, Normal carotid pulses Cardiac: Reg Rate and Rhythm, Normal S1 and S2, No Murmur Lungs: Normal Breath Sounds, No Wheeze, Rales, Rhonchi Neuro: Alert and responsive, No focal deficits noted Abdomen: Soft, Non-Tender Skin: No rashes noted on visualized skin Musculoskeletal: No Chest Wall Tenderness Extremities: No Clubbing, No Cyanosis, No Edema, Normal Pulses Results 05/20/17 04:37 05/20/17 04:37 Lab Results Impressions Abdomen Ultrasound 05/19/17 11:00 IMPRESSION: Stones and sludge in the gallbladder, with stones in the gallbladder neck. Nonspecific findings of the gallbladder, equivocal for chronic or acute cholecystitis. Further evaluation with HIDA scan may be beneficial. Enlarged common bile duct measuring up to 1 cm, and mild intrahepatic biliary ductal dilatation, grossly stable since CT abdomen pelvis May 19, 2018, may be related to reported history of choledocholithiasis. Hepatic steatosis. D/ / Kyle Muniz MD / Kyle Muniz MD Interpreting Provider: Kyle Muniz MD Active Medications Piperacillin Sod/Tazobactam (Sod 3.375 gm/ Sodium Chloride) 100 mls @ 25 mls/ hr IVPB Q8H [facility] Stop: 11/18/17 13:01 Last Infusion: 05/20/17 09:02 Dose: Infused Sodium Chloride (0.9 % Sodium Chloride) 1,000 mls @ 150 mls/hr IVC .[id number] [facility] Stop: 11/18/17 10:39 Last Admin: 05/20/17 07:53 Dose: 150 mls/hr Potassium Chloride (Potassium Chloride 10 Meq/100ml) 10 meq in 100 mls @ 100 mls/hr IVPB Q1H [facility] Stop: 05/20/17 12:44 Last Admin: 05/20/17 11:16 Dose: 100 mls/hr Potassium Chloride 40 meq/ (Lidocaine 2 ml/ Dextrose) 522 mls @ 130.5 mls/hr IVPB ONCE ONE Stop: 05/20/17 14:34 Lorazepam (Ativan) 1 mg IVP Q1H PRN PRN Reason: Alcohol Withdrawal Stop: 11/18/17 06:10 Lorazepam (Ativan) 2 mg IVP Q4HR PRN PRN Reason: CIWA Score of 10-21 Stop: 11/18/17 06:10 Lorazepam (Ativan) 4 mg IVP Q4HR PRN PRN Reason: CIWA Score of 22-45 Stop: 11/18/17 06:10 Morphine Sulfate (Morphine Sulfate) 2 mg IVP Q2H PRN; Protocol PRN Reason: Pain Stop: 11/18/17 05:28 Last Admin: 05/19/17 13:57 Dose: 2 mg Naloxone HCl (Narcan) 0.4 mg IVP Q2MIN PRN PRN Reason: SEE COMMENTS Stop: 11/18/17 05:27 Nitroglycerin (Nitroglycerin) 0.4 mg SL Q5MIN PRN PRN Reason: Chest Pain Stop: 11/18/17 00:32 Last Admin: 05/19/17 01:14 Dose: 0.4 mg Ondansetron HCl (Zofran) 4 mg IVP Q6HR PRN; Protocol PRN Reason: Nausea And Vomiting Stop: 11/19/17 10:42 Laboratory Tests 05/19/17 05/19/17 05/19/17 00:27 02:07 05:41 Hgb Creatinine Troponin I < 0.03 < 0.03 < 0.03 05/19/17 05/19/17 05/20/17 11:39 17:22 04:37 Hgb 10.9 L D Creatinine Troponin I 0.08 H* 0.15 H* 05/20/17 05/20/17 04:37 10:49 Hgb Creatinine 0.44 L Troponin I 0.12 H* - Imaging and Cardiology Chest Xray: report reviewed Echo: pending - EKG Interpretation EKG results cardiology: other (Telemetry reviewed with average HR previous 12 hours noted to be 83, SR. PACs noted.) Consult Discharge Plan - Plan Referrals: Cherry Collins MD [Primary Care Provider] -
--- NOTE | 2017-05-20 13:01 | General Surgery Progress Note ---
<ZacharychiquiJudi elias - Last Filed: 05/20/17 12:54> Date of Encounter: 05/20/17 Time of Encounter: 09:00 - Assessment and Plan (1) Cholecystitis Current Visit: Yes Status: Acute CT scan of abdomen and pelvis on 05/19/2017 shows cholelithiasis and choledocholithiasis with acute cholecystitis, biliary ductal dilatation, and subtle findings suggestive of acute pancreatitis. -Conjugated hyperbilirubinemia (total bili 3.0, direct bili 2.8), transaminitis (607 AST, 3077 ALT), alkaline phosphatase 106 and lipase greater than 1800. -Ethyl alcohol less than 10. -Abdominal ultrasound on 05/19/2017 showed stones and sludge in the gallbladder with stones in the gallbladder neck. Enlarged common bile duct measuring up to 1 cm in mild intrahepatic biliary ductal dilatation. Stable CT of abdomen and pelvis one day prior. May be related to history of choleldocolithiasis. Plan for today: -Spoke with [facility], unable to accommodate patient with ERCP this weekend. Patient feeling better this morning. We will consult GI for ERCP tomorrow, with surgical intervention after that. -Continue Zosyn. -Replete electrolytes. -Patient nothing by mouth (2) Pancreatitis Current Visit: Yes Status: Acute See managment as per above. -Pain control and anti-emetics. -CIWA protocol. Qualifiers: Chronicity: acute Pancreatitis type: biliary Acute pancreatitis complication: unspecified Qualified Code(s): K85.10 - Biliary acute pancreatitis without necrosis or infection (3) Choledocholithiasis Current Visit: Yes Status: Acute Seen management as per above. -Consistent with choledocholithiasis. -ERCP tomorrow. (4) Transaminitis Current Visit: Yes Status: Acute Patient on CIWA protocol. -Labs and imaging suggestive of biliary obstruction. -See management as per above. (5) Alcohol abuse Current Visit: Yes Status: Acute CIWA protocol (6) Elevated troponin Current Visit: Yes Status: Acute Patient with elevated troponin this morning. -Cardiology following, likely due to demand ischemia. Awaiting echocardiogram. Subjective Patient reports: no new complaints, feels better, still having pain, pain is less, voiding w/o difficulty (Patient is hungry, still complaining of right upper quadrant tenderness. Denies chest pain, chest palpitations, or shortness of breath.) Objective Vital Signs - Last 8 Hours Temp Pulse Resp BP Pulse Ox 05/20/17 11:37 98.2 F 83 16 139/90 96 05/20/17 08:19 98.4 F 81 16 134/84 96 Intake and Output 05/19/17 05/20/17 05/20/17 23:59 07:59 15:59 Intake Total 1100 / 1100 1100 / 1100 400 / 400 Output Total 400 / 400 Balance 700 / 700 1100 / 1100 400 / 400 Intake: IV Fluids 1100 / 1100 1100 / 1100 400 / 400 0.9 % Sodium Chloride 1,000 ML 1000 / 1000 1000 / 1000 @ 150 mls/hr IVC .Q6H40M [facility] Rx #:[id number] Zosyn 3.375 GM In 0.9 % Sodium 100 / 100 100 / 100 100 / 100 Chloride 100 ML @ 25 mls/hr IVPB Q8H [facility] Rx#:[id number] Potassium Chloride 10 mEq/100mL 300 / 300 10 meq In 100 ml @ 100 mls/hr IVPB Q1H [facility] Rx#:[id number] Oral 0 / 0 Output: Urine 400 / 400 Other: Meal NPO npo Percent of Meal Consumed 0% 0% Stool Size Small Stool Characteristics Normal for Patient # Voids 1 # Bowel Movements 1 Weight 79 kg Patient Weight 05/20/17 23:59 Weight 79 kg - General physical appearance well developed, well nourished - ENT normal pinna, normal nares, normal mucosa - Respiratory normal expansion, normal respiratory effort, clear to percussion, clear to auscultation - Cardiovascular Cardiovascular exam: Present: RRR, no murmurs/rubs/gallops - Abdomen Abdomen: Present: bowel sounds present, soft, tender (Patient with right upper quadrant tenderness to palpation.). Absent: distended, guarding, rebound, rigid Hernia: none - Integumentary no rash - Neurologic CN 2-12 grossly intact, normal coordination, normal sensation - Psychiatric oriented to time, oriented to person, oriented to place, speech is normal, memory intact - Labs 05/20/17 04:37 05/20/17 04:37 Diabetes panel 05/19/17 05/20/17 Range/Units 11:39 04:37 Sodium 134 L (136-145) mEq/L Potassium 3.4 L D 3.3 L (3.5-5.1) mEq/L Chloride 107 (98-107) mEq/L Carbon Dioxide 20 L (23-29) mEq/L BUN 6 L (8-23) mg/dL Creatinine 0.44 L (0.60-1.20) mg/dL Glucose 103 (70-105) mg/dL Calcium 7.3 L (8.6-10.3) mg/dL AST 607 H (13-39) Units/L ALT 377 H (7-52) Units/L Alkaline Phosphatase 106 H (34-104) Units/L Albumin 3.2 L (3.5-5.7) g/dL Calcium panel 05/20/17 Range/Units 04:37 Calcium 7.3 L (8.6-10.3) mg/dL Albumin 3.2 L (3.5-5.7) g/dL Pituitary panel 05/19/17 05/20/17 Range/Units 11:39 04:37 Sodium 134 L (136-145) mEq/L Potassium 3.4 L D 3.3 L (3.5-5.1) mEq/L Chloride 107 (98-107) mEq/L Carbon Dioxide 20 L (23-29) mEq/L BUN 6 L (8-23) mg/dL Creatinine 0.44 L (0.60-1.20) mg/dL Glucose 103 (70-105) mg/dL Calcium 7.3 L (8.6-10.3) mg/dL Adrenal panel 05/19/17 05/20/17 Range/Units 11:39 04:37 Sodium 134 L (136-145) mEq/L Potassium 3.4 L D 3.3 L (3.5-5.1) mEq/L Chloride 107 (98-107) mEq/L Carbon Dioxide 20 L (23-29) mEq/L BUN 6 L (8-23) mg/dL Creatinine 0.44 L (0.60-1.20) mg/dL Glucose 103 (70-105) mg/dL Calcium 7.3 L (8.6-10.3) mg/dL Total Bilirubin 3.0 H (0.3-1.0) mg/dL AST 607 H (13-39) Units/L ALT 377 H (7-52) Units/L Alkaline Phosphatase 106 H (34-104) Units/L Albumin 3.2 L (3.5-5.7) g/dL Consult Discharge Plan - Plan Referrals: Cherry Collins MD [Primary Care Provider] - <Brett Reed - Last Filed: 05/20/17 19:29> Date of Encounter: 05/20/17 Objective Vital Signs - Last 8 Hours Temp Pulse Resp BP Pulse Ox 05/20/17 19:23 98.5 F 85 16 134/84 97 05/20/17 16:13 98.3 F 86 18 125/81 96 05/20/17 11:37 98.2 F 83 16 139/90 96 Intake and Output 05/20/17 05/20/17 05/20/17 07:59 15:59 23:59 Intake Total 1100 / 1100 1400 / 1400 Output Total 600 / 600 Balance 1100 / 1100 800 / 800 Intake: IV Fluids 1100 / 1100 1400 / 1400 0.9 % Sodium Chloride 1,000 ML 1000 / 1000 1000 / 1000 @ 150 mls/hr IVC .Q6H40M [facility] Rx #:[id number] Zosyn 3.375 GM In 0.9 % Sodium 100 / 100 100 / 100 Chloride 100 ML @ 25 mls/hr IVPB Q8H [facility] Rx#:[id number] Potassium Chloride 10 mEq/100mL 300 / 300 10 meq In 100 ml @ 100 mls/hr IVPB Q1H [facility] Rx#:[id number] Output: Urine 600 / 600 Other: Meal npo Percent of Meal Consumed 0% Stool Size Small Stool Characteristics Normal for Patient # Voids 1 # Bowel Movements 1 Weight 79 kg Patient Weight 05/20/17 23:59 Weight 79 kg - Labs 05/20/17 04:37 05/20/17 12:55 Diabetes panel 05/20/17 05/20/17 Range/Units 04:37 12:55 Sodium 134 L (136-145) mEq/L Potassium 3.3 L 3.9 (3.5-5.1) mEq/L Chloride 107 (98-107) mEq/L Carbon Dioxide 20 L (23-29) mEq/L BUN 6 L (8-23) mg/dL Creatinine 0.44 L (0.60-1.20) mg/dL Glucose 103 (70-105) mg/dL Calcium 7.3 L (8.6-10.3) mg/dL AST 607 H (13-39) Units/L ALT 377 H (7-52) Units/L Alkaline Phosphatase 106 H (34-104) Units/L Albumin 3.2 L (3.5-5.7) g/dL Calcium panel 05/20/17 Range/Units 04:37 Calcium 7.3 L (8.6-10.3) mg/dL Albumin 3.2 L (3.5-5.7) g/dL Pituitary panel 05/20/17 05/20/17 Range/Units 04:37 12:55 Sodium 134 L (136-145) mEq/L Potassium 3.3 L 3.9 (3.5-5.1) mEq/L Chloride 107 (98-107) mEq/L Carbon Dioxide 20 L (23-29) mEq/L BUN 6 L (8-23) mg/dL Creatinine 0.44 L (0.60-1.20) mg/dL Glucose 103 (70-105) mg/dL Calcium 7.3 L (8.6-10.3) mg/dL Adrenal panel 05/20/17 05/20/17 Range/Units 04:37 12:55 Sodium 134 L (136-145) mEq/L Potassium 3.3 L 3.9 (3.5-5.1) mEq/L Chloride 107 (98-107) mEq/L Carbon Dioxide 20 L (23-29) mEq/L BUN 6 L (8-23) mg/dL Creatinine 0.44 L (0.60-1.20) mg/dL Glucose 103 (70-105) mg/dL Calcium 7.3 L (8.6-10.3) mg/dL Total Bilirubin 3.0 H (0.3-1.0) mg/dL AST 607 H (13-39) Units/L ALT 377 H (7-52) Units/L Alkaline Phosphatase 106 H (34-104) Units/L Albumin 3.2 L (3.5-5.7) g/dL - Attending Attestation Patient seen and examined. all imaging, labs, and notes, including this one, were evaluated by me. I agree with the above assessment and plan and wish to add the following... AF VSS; still with abdominal pain, non peritoneal; Still with concern for obstruction; GI consult for ErCP tomorrow; will plan for surgery after
--- NOTE | 2017-05-20 14:01 | Event Note ---
Date of Encounter: 05/20/17 Time of Encounter: 14:00 - Cardiology Event Note TTE with LVEF 60%, RV mildly dilated with normal function, no significant valvular dysufnction. Cardiology will sign off and will follow in outpatient setting. Follow up set.
[2017-05-20] MEDS: *HR* Morphine 2 MG/ML SYRINGE IVP PRN ×2 (17:29→20:40)
[2017-05-21] MEDS: *HR* Morphine 2 MG/ML SYRINGE IVP PRN ×2 (00:18→04:19)
[2017-05-21] MEDS: 0.9 % Sodium Chloride 1,000 ML IVC SCH ×4 (00:21→20:52)
[2017-05-21 05:50] LABS: Basophils % 0.5 %; Eosinophils % 0.5 %; Hematocrit 32.9 % (35.3-44.9); Hemoglobin 10.9 g/dL (11.5-15.4); Immature Granulocytes % 0.7 % (0-4); Lymphocytes # 0.7 K/mcL (0.6-4.6); Lymphocytes % 17.3 %; Mean Corpuscular HGB Conc 33.1 g/dL (31.6-35.5); Mean Corpuscular Hemoglobin 32.2 pg (28.0-33.3); Mean Corpuscular Volume 97.3 fL (83.0-100.0); Mean Platelet Volume 9.4 fL (9.4-12.4); Monocytes # 0.6 K/mcL (0.0-1.3); Neutrophils # 2.8 K/mcL (1.6-8.9); Platelet Count 128 K/mcL (140-400); Red Blood Count 3.38 M/mcL (3.82-4.97); Red Cell Distribution Width 12.3 % (11.5-14.5)
[2017-05-21 06:13] LABS: Alanine Aminotransferase 293 Units/L (7-52); Albumin 3.1 g/dL (3.5-5.7); Albumin/Globulin Ratio 1.5 (1.1-2.2); Alkaline Phosphatase 119 Units/L (34-104); Aspartate Amino Transferase 306 Units/L (13-39); BUN/Creatinine Ratio 14 (6-26); Bilirubin,Total 1.8 mg/dL (0.3-1.0); Blood Urea Nitrogen 7 mg/dL (8-23); Calcium 7.2 mg/dL (8.6-10.3); Carbon Dioxide 20 mEq/L (23-29); Chloride 108 mEq/L (98-107); Globulin 2.1 g/dL (2.4-3.5); Glucose 72 mg/dL (70-105); Magnesium 1.8 mg/dL (1.6-2.6); Osmolality,Calculated 281 (280-300); Potassium 3.5 mEq/L (3.5-5.1); Sodium 137 mEq/L (136-145); Total Protein 5.2 g/dL (6.4-8.9); eGFR For African Americans > 60 (> 60); eGFR For Non-African Americans > 60 (> 60)
--- NOTE | 2017-05-21 07:37 | General Surgery Progress Note ---
Date of Encounter: 05/21/17 Time of Encounter: 07:35 - Assessment and Plan (1) Choledocholithiasis Current Visit: Yes Status: Acute decreased pain, but still persistent; Tbili decreased, but in light of persistent pain, I'm suspicious that she still has an obstruction; GI consulted repeat US to evaluate for stone; no acute surgery at present; dispo status dependent on GI recs Subjective Patient reports: no new complaints, feels better, still having pain, pain is less, afebrile Objective Vital Signs - Last 8 Hours Temp Pulse Resp BP Pulse Ox 05/21/17 04:23 97.9 F 81 16 134/83 95 05/21/17 00:25 98.5 F 82 16 125/82 96 Intake and Output 05/20/17 05/20/17 05/21/17 15:59 23:59 07:59 Intake Total 1400 / 1400 1100 / 1100 1100 / 1100 Output Total 600 / 600 700 / 700 Balance 800 / 800 1100 / 1100 400 / 400 Intake: IV Fluids 1400 / 1400 1100 / 1100 1100 / 1100 0.9 % Sodium Chloride 1,000 ML 1000 / 1000 1000 / 1000 1000 / 1000 @ 150 mls/hr IVC .Q6H40M [facility] Rx #:[id number] Zosyn 3.375 GM In 0.9 % Sodium 100 / 100 100 / 100 100 / 100 Chloride 100 ML @ 25 mls/hr IVPB Q8H [facility] Rx#:[id number] Potassium Chloride 10 mEq/100mL 300 / 300 10 meq In 100 ml @ 100 mls/hr IVPB Q1H [facility] Rx#:[id number] Output: Urine 600 / 600 700 / 700 Other: Meal npo Percent of Meal Consumed 0% Weight 77.02 kg Patient Weight 05/21/17 23:59 Weight 77.02 kg - General physical appearance no distress - ENT normocephalic - Neck Neck exam: no lymphadectomy - Respiratory normal expansion, normal respiratory effort - Cardiovascular Cardiovascular exam: Present: RRR - Abdomen Abdomen: Present: soft, tender Abdominal Tenderness: RUQ - Integumentary no rash - Neurologic CN 2-12 grossly intact - Psychiatric oriented to time - Labs 05/21/17 04:58 05/21/17 04:58 Diabetes panel 05/20/17 05/21/17 Range/Units 12:55 04:58 Sodium 137 (136-145) mEq/L Potassium 3.9 3.5 (3.5-5.1) mEq/L Chloride 108 H (98-107) mEq/L Carbon Dioxide 20 L (23-29) mEq/L BUN 7 L (8-23) mg/dL Creatinine 0.49 L (0.60-1.20) mg/dL Glucose 72 (70-105) mg/dL Calcium 7.2 L (8.6-10.3) mg/dL AST 306 H (13-39) Units/L ALT 293 H (7-52) Units/L Alkaline Phosphatase 119 H (34-104) Units/L Albumin 3.1 L (3.5-5.7) g/dL Calcium panel 05/21/17 Range/Units 04:58 Calcium 7.2 L (8.6-10.3) mg/dL Albumin 3.1 L (3.5-5.7) g/dL Pituitary panel 05/20/17 05/21/17 Range/Units 12:55 04:58 Sodium 137 (136-145) mEq/L Potassium 3.9 3.5 (3.5-5.1) mEq/L Chloride 108 H (98-107) mEq/L Carbon Dioxide 20 L (23-29) mEq/L BUN 7 L (8-23) mg/dL Creatinine 0.49 L (0.60-1.20) mg/dL Glucose 72 (70-105) mg/dL Calcium 7.2 L (8.6-10.3) mg/dL Adrenal panel 05/20/17 05/21/17 Range/Units 12:55 04:58 Sodium 137 (136-145) mEq/L Potassium 3.9 3.5 (3.5-5.1) mEq/L Chloride 108 H (98-107) mEq/L Carbon Dioxide 20 L (23-29) mEq/L BUN 7 L (8-23) mg/dL Creatinine 0.49 L (0.60-1.20) mg/dL Glucose 72 (70-105) mg/dL Calcium 7.2 L (8.6-10.3) mg/dL Total Bilirubin 1.8 H (0.3-1.0) mg/dL AST 306 H (13-39) Units/L ALT 293 H (7-52) Units/L Alkaline Phosphatase 119 H (34-104) Units/L Albumin 3.1 L (3.5-5.7) g/dL Consult Discharge Plan - Plan Referrals: Cherry Collins MD [Primary Care Provider] -
[2017-05-21] MEDS ORDERED: OxyCODONE CONC 5 MG/0.25 ML ORAL.SYG PO PRN (08:40)
--- NOTE | 2017-05-21 09:05 | Internal Med Progress Note ---
Date of Encounter: 05/21/17 Time of Encounter: 09:02 - Assessment and plan (1) Abnormal ECG Current Visit: Yes Status: Acute Assessment and plan: cardiology signed off. Recommend aspirin and a beta dianne at discharge.. Troponins are elevated at 0.08 and 0.15. An echocardiogram showed EF of 60%. Mild left ventricular diastolic dysfunction. Atypical septal motion possibly due to bundle branch block. Mildly dilated right ventricle. EKG finding of consistent with possibly Brugada syndrome per cardiology's note. She may need an EP outpatient follow-up. (2) Cholecystitis Current Visit: Yes Status: Acute Assessment and plan: Continue and control and antiemetics. Surgery is following. (3) Choledocholithiasis Current Visit: Yes Status: Acute Assessment and plan: Patient needs an ERCP. GI is consulted. Remains nothing by mouth. Continue empiric antibiotics (4) Pancreatitis Current Visit: Yes Status: Acute Assessment and plan: Continue IV fluids. Decrease rate 75 mL an hour. Lipase is at 37 now. Continue pain control. Continue antiemetics. Qualifiers: Chronicity: acute Pancreatitis type: biliary Acute pancreatitis complication: unspecified Qualified Code(s): K85.10 - Biliary acute pancreatitis without necrosis or infection (5) DVT prophylaxis Current Visit: Yes Status: Acute Assessment and plan: SCDs - Subjective Interval history: No acute events. The patient was seen and examined. Pain is well controlled. She is afebrile. possibly ERCP today. She was admitted with acute pancreatitis likely secondary to acute cholecystitis/choledocholithiasis. Seen by surgery. No nausea or vomiting. Remains nothing by mouth. - Constitutional Vitals: Temp Pulse Resp BP Pulse Ox 98.3 F 74 15 138/88 97 05/21/17 08:50 05/21/17 08:50 05/21/17 08:50 05/21/17 08:50 05/21/17 08:50 General appearance: Present: A&O X 3, pleasant, no acute distress Exam: GEN: NAD CVS: RRR. S1, S2, No m/r/g RESP: CTAB ABD: Soft, NT, right upper quadrant tenderness, +BS EXT: No edema. 2+ DP. No rashes NEURO: Nonfocal Internal Medicine: Result - Labs CBC & Chem 7: 05/21/17 04:58 05/21/17 04:58 Labs: Short CBC 05/21/17 Range/Units 04:58 WBC 4.2 L (4.3-11.1) K/mcL Hgb 10.9 L (11.5-15.4) g/dL Hct 32.9 L (35.3-44.9) % Plt Count 128 L D (140-400) K/mcL Neutrophils # 2.8 (1.6-8.9) K/mcL BMP 05/20/17 05/21/17 12:55 04:58 Sodium 137 Potassium 3.9 3.5 Chloride 108 H Carbon Dioxide 20 L BUN 7 L Creatinine 0.49 L Glucose 72 Calcium 7.2 L Cardiac Enzymes 05/20/17 Range/Units 10:49 Troponin I 0.12 H* (< 0.04) ng/mL Liver Function 05/21/17 Range/Units 04:58 Total Bilirubin 1.8 H (0.3-1.0) mg/dL AST 306 H (13-39) Units/L ALT 293 H (7-52) Units/L Alkaline Phosphatase 119 H (34-104) Units/L Albumin 3.1 L (3.5-5.7) g/dL - ABG Interpretation ABG results: PT/INR, D-dimer PT 10.7 Seconds (9.4-12.1) 05/19/17 00:27 - Impressions Impressions Echocardiogram 05/20/17 11:21 Impressions: LVEF 60%. Normal LV chamber size, wall thickness and function. Mild left ventricular diastolic dysfunction. Atypical septal motion possibly due to bundle branch block. Mildly dilated right ventricle with normal appearing function. No evidence of pulmonary hypertension. No significant valvular dysfunction. Left Ventricular Wall Motion: Rest Echo Findings All wall segments showed normal motion. Findings: Study Quality * Technically adequate exam. ECG Findings * Normal sinus rhythm, possible bundle branch block. Left Ventricle * LVEF 60%. * Normal LV chamber size, wall thickness and function. * Mild left ventricular diastolic dysfunction. * Atypical septal motion possibly due to bundle branch block. Right Ventricle * Mildly dilated right ventricle with normal appearing function. Left Atrium * Moderately dilated left atrium. Right Atrium * Mildly dilated right atrium. Aortic Valve * Trileaflet aortic valve. * Mild to modertely calcified aortic valve leaflets. * No aortic regurgitation. * No aortic stenosis. Mitral Valve * Normal mitral valve structure and function. * No mitral stenosis. * Trace mitral regurgitation. Tricuspid Valve * Normal tricuspid valve structure and function. * Trace tricuspid regurgitation. * No evidence of pulmonary hypertension. Pulmonic Valve * Normal pulmonic valve structure and function. * No pulmonic regurgitation. Aorta * Normally sized aortic root. Pericardium * The pericardium appears normal. Pulmonary Artery * Normal visualized portions of the main pulmonary artery. IVC * The IVC is dilated. * < 50% respiratory change. Consult Discharge Plan - Plan Referrals: Cherry Collins MD [Primary Care Provider] -
--- NOTE | 2017-05-21 12:04 | Event Note ---
Date of Encounter: 05/21/17 Time of Encounter: 12:03 Reviewed US results with DR. Reed. Pt is NPO. Dr. Reed has spoke to Dr. Rhodes. Like pt to have ERCP. Remain NPO at this time.
--- NOTE | 2017-05-21 13:52 | Gastroenterology Consult Note ---
<Goyo Jerry - Last Filed: 05/21/17 13:49> Date of Encounter: 05/21/17 Time of Encounter: 11:50 - Assessment and plan (1) Choledocholithiasis Current Visit: Yes Status: Acute Assessment and plan: CT A/P 05/19/2017 shows cholelithiasis and choledocholithiasis with acute cholecystitis, biliary ductal dilatation, and subtle findings suggestive of acute pancreatitis. Abdominal US 05/19/2017 showed stones and sludge in the gallbladder with stones in the gallbladder neck. Enlarged common bile duct measuring up to 1 cm in mild intrahepatic biliary ductal dilatation. Repeat US showed intrahepatic and common bile duct dilatation measuring up to 10 mm, is unchanged and compatible with known choledocholithiasis. Plan for ERCP today. Keep pt NPO. (2) Pancreatitis Current Visit: Yes Status: Acute Assessment and plan: Lipase on admission >1800, now 37. Continue IV fluids, pain control, and anti- emetics. Qualifiers: Chronicity: acute Pancreatitis type: biliary Acute pancreatitis complication: unspecified Qualified Code(s): K85.10 - Biliary acute pancreatitis without necrosis or infection (3) Cholecystitis Current Visit: Yes Status: Acute Assessment and plan: Management per Surgery. - Time Spent With Patient Total time spent is greater than 50% in coordination of care (as documented) at patient's floor/unit and/or counseling patient: GI History of Present Illness - Data of Consult Patient: new to practice Consult date: 05/21/17 Requesting Physician: Alla Peace - Consult Narrative Reason for consult: Choledocholithiasis History of present illness: Ms. Montiel is a 67 year old female with PMHx of alcohol abuse who presented to the ED with severe epigastric/RUQ pain after eating dinner. Patient reports drinking heavily over the past few weeks after being abstinent from alcohol for a short period. CT A/P 05/19/2017 shows cholelithiasis and choledocholithiasis with acute cholecystitis, biliary ductal dilatation, and subtle findings suggestive of acute pancreatitis. Abdominal US 05/19/2017 showed stones and sludge in the gallbladder with stones in the gallbladder neck. Enlarged common bile duct measuring up to 1 cm in mild intrahepatic biliary ductal dilatation. Lipase was markedly elevated on admission at >1800, this AM lipase 37. Total bili peaked at 4.1 on 05/19/2017 and today TB 1.8. AST and ALT remain elevated as well. She denied fevers, chills, chest pain, shortness of breath, nausea, vomiting, hematochezia, melena. Procedures: Colonoscopy 03/13/2001 Gregorio Crespo: Possible microscopic colitis, nonspecific inflammation. NSAIDs: None Anticoagulation: None Past Med Surg Social Fam HX - Past Medical History Medical history: other Psychiatric history: depression - Social History Smoking Status: Former smoker Smokeless Tobacco Status: No Alcohol use: heavy Drug use: none - Family History Mother Living Status: Age at : 71 Cause of : Cancer Hx Family Cancer: Yes - Gastrointestinal Gastrointestinal: Present: as per HPI - Constitutional Constitutional: as per HPI - EENT Eyes: as per HPI Ears: Present: as per HPI Nose, mouth and throat: Present: as per HPI - Cardiovascular Cardiovascular ROS: Present: as per HPI - Respiratory Respiratory IM: Present: as per HPI - Genitourinary Genitourinary: Absent: change in color, Urinary frequency - Neurological ROS Neurological GI: Present: as per HPI - Hematologic/Lymphatic Hematologic/Lymphatic pediatric: Present: as per HPI - Musculoskeletal Musculoskeletal ROS GI: Present: as per HPI - Integumentary Integumentary GI: Present: as per HPI - Psychiatric ROS Psychiatric GI: Present: as per HPI - Endocrine Endocrine IM: Present: as per HPI - Constitutional Vitals: Temp Pulse Resp BP Pulse Ox 97.8 F 71 16 127/84 96 05/21/17 12:45 05/21/17 12:45 05/21/17 12:45 05/21/17 12:45 05/21/17 12:45 General appearance: Present: cooperative, A&O X 3, no acute distress, answers questions appropriately - Head Head exam: Present: atraumatic, normocephalic - Eye Eye exam: Present: normal appearance, sclera anicteric - ENT ENT exam: Present: mucous membranes dry - Neck Neck exam general surgery: Present: normal inspection, trachea midline - Respiratory Respiratory exam: Present: CTAB. Absent: rales, rhonchi - Cardiovascular Cardiovascular exam: Present: RRR, +S1, +S2 - GI/Abdominal GI/Abdominal exam: Present: soft, tenderness (epigastric and RUQ tenderness), no peritoneal signs. Absent: distended, firm, guarding - Rectal Rectal exam: Present: deferred - Extremities Exam Extremities exam: Present: warm - Neurological Exam Neurological exam: Present: no focal deficits - Psychiatric Psychiatric exam: Present: normal affect, normal mood - Skin Skin exam: Present: dry, intact, normal color, warm Results - Labs CBC & Chem 7: 05/21/17 04:58 05/21/17 04:58 Labs: Last Result Calcium 7.2 mg/dL (8.6-10.3) L 05/21/17 04:58 Troponin I 0.12 ng/mL (< 0.04) H* 05/20/17 10:49 Entire Visit Hgb 10.9 g/dL (11.5-15.4) L 05/21/17 04:58 Hct 32.9 % (35.3-44.9) L 05/21/17 04:58 PT 10.7 Seconds (9.4-12.1) 05/19/17 00:27 Total Bilirubin 1.8 mg/dL (0.3-1.0) H 05/21/17 04:58 AST 306 Units/L (13-39) H 05/21/17 04:58 ALT 293 Units/L (7-52) H 05/21/17 04:58 Lipase 37 Units/L (11-82) 05/21/17 04:58 - ABG ABG results: PT/INR, D-dimer PT 10.7 Seconds (9.4-12.1) 05/19/17 00:27 - Impressions Impressions Echocardiogram 05/20/17 11:21 Impressions: LVEF 60%. Normal LV chamber size, wall thickness and function. Mild left ventricular diastolic dysfunction. Atypical septal motion possibly due to bundle branch block. Mildly dilated right ventricle with normal appearing function. No evidence of pulmonary hypertension. No significant valvular dysfunction. Left Ventricular Wall Motion: Rest Echo Findings All wall segments showed normal motion. Findings: Study Quality * Technically adequate exam. ECG Findings * Normal sinus rhythm, possible bundle branch block. Left Ventricle * LVEF 60%. * Normal LV chamber size, wall thickness and function. * Mild left ventricular diastolic dysfunction. * Atypical septal motion possibly due to bundle branch block. Right Ventricle * Mildly dilated right ventricle with normal appearing function. Left Atrium * Moderately dilated left atrium. Right Atrium * Mildly dilated right atrium. Aortic Valve * Trileaflet aortic valve. * Mild to modertely calcified aortic valve leaflets. * No aortic regurgitation. * No aortic stenosis. Mitral Valve * Normal mitral valve structure and function. * No mitral stenosis. * Trace mitral regurgitation. Tricuspid Valve * Normal tricuspid valve structure and function. * Trace tricuspid regurgitation. * No evidence of pulmonary hypertension. Pulmonic Valve * Normal pulmonic valve structure and function. * No pulmonic regurgitation. Aorta * Normally sized aortic root. Pericardium * The pericardium appears normal. Pulmonary Artery * Normal visualized portions of the main pulmonary artery. IVC * The IVC is dilated. * < 50% respiratory change. Abdomen Ultrasound 05/21/17 10:00 IMPRESSION: Stable examination. Findings of acute cholecystitis are unchanged. Intrahepatic and common bile duct dilatation measuring up to 10 mm, is unchanged and compatible with known choledocholithiasis. Unchanged hepatic steatosis. D/ / 05/21/2017 11:10:22 Kevan Lundy MD / earnold Interpreting Provider: Kevan Lundy MD Consult Discharge Plan - Plan Referrals: Cherry Collins MD [Primary Care Provider] - <CarmeloEvieGunjan - Last Filed: 05/21/17 18:43> Date of Encounter: 05/21/17 Time of Encounter: 17:00 - Time Spent With Patient Total time spent is greater than 50% in coordination of care (as documented) at patient's floor/unit and/or counseling patient: GI History of Present Illness - Data of Consult Requesting Physician: Alla Peace - Consult Narrative History of present illness: Ms. Montiel is a 67 year old female - Constitutional Vitals: Temp Pulse Resp BP Pulse Ox 97.4 F L 71 20 140/79 97 05/21/17 18:22 05/21/17 18:32 05/21/17 18:32 05/21/17 18:32 05/21/17 18:32 Results - Labs CBC & Chem 7: 05/21/17 04:58 05/21/17 04:58 Labs: Last Result Calcium 7.2 mg/dL (8.6-10.3) L 05/21/17 04:58 Troponin I 0.12 ng/mL (< 0.04) H* 05/20/17 10:49 Entire Visit Hgb 10.9 g/dL (11.5-15.4) L 05/21/17 04:58 Hct 32.9 % (35.3-44.9) L 05/21/17 04:58 PT 10.7 Seconds (9.4-12.1) 05/19/17 00:27 Total Bilirubin 1.8 mg/dL (0.3-1.0) H 05/21/17 04:58 AST 306 Units/L (13-39) H 05/21/17 04:58 ALT 293 Units/L (7-52) H 05/21/17 04:58 Lipase 37 Units/L (11-82) 05/21/17 04:58 - ABG ABG results: PT/INR, D-dimer PT 10.7 Seconds (9.4-12.1) 05/19/17 00:27 - Impressions Impressions Abdomen Ultrasound 05/21/17 10:00 IMPRESSION: Stable examination. Findings of acute cholecystitis are unchanged. Intrahepatic and common bile duct dilatation measuring up to 10 mm, is unchanged and compatible with known choledocholithiasis. Unchanged hepatic steatosis. D/ / 05/21/2017 11:10:22 Kevan Lundy MD / earnold Interpreting Provider: Kevan Lundy MD - Attending Attestation I examined this patient and my medical decision-making was reviewed with the INFORMATION SYSTEMS SECURITY DEVELOPER. I agree with the documented findings, disposition and treatment plan as described except to the extent set forth below. Patient with CBD stone with abnormal LFTs. Plan is for ERCP procedure including risks discussed with the patient
--- NOTE | 2017-05-21 17:10 | Anesthesia Evaluation PreOp ---
Date of Encounter: 05/21/17 Time of Encounter: 17:08 - Past History Planned Operation: ERCP Cardiac History: Other (elevated troponins in setting of acute cholecystitis and pancreatitis---cardiology consulted, suspect demand ischemia not NSTEMI) Pulmonary History: Former smoker (quit 35 years ago) BANQUET COORDINATOR History: Syncope (last episode 3 weeks ago) Other Medical History: Denies Any Significant HX Anesthesia History: No Prior Anesthetic Complications, Past Anesthesia Alcohol Use: heavy Drug use: none Medications and Allergies Biotin 1 mg PO DAILY 05/19/17 [History] Cranberry Fruit Extract [Cranberry] 500 mg PO DAILY 05/19/17 [History] 3 Allergy/AdvReac Type Severity Reaction Status Date / Time No Known Allergies Allergy Verified 05/18/17 23:52 - Meds/Allergy Pre-op Review Medications Reviewed: Yes Allergies Reviewed: Yes Beta Blockers on Current Med List: No Anesthesia Results - Labs 05/21/17 04:58 05/21/17 04:58 - Imaging EKG: report reviewed (05/19/2017 ectopic atrial rhythm, marked ST elevation, consider septal injury) Additional studies: 05/18/2017 Echo Impressions: LVEF 60%. Normal LV chamber size, wall thickness and function. Mild left ventricular diastolic dysfunction. Atypical septal motion possibly due to bundle branch block. Mildly dilated right ventricle with normal appearing function. No evidence of pulmonary hypertension. No significant valvular dysfunction. Anesthesia Exam Vital Signs/O2 Sat, Most Current Temp Pulse Resp BP Pulse Ox 98.0 F 85 16 139/90 96 05/21/17 15:39 05/21/17 15:39 05/21/17 15:39 05/21/17 15:39 05/21/17 15:39 Height: 5'6''/1.68 m Weight: 169 lbs/77 kg NPO (# of Hours): 8 Pain Scale: 0 Pain Scale Used: Numeric (1 - 10) - HEENT Pupil (Motor): EOMI Mallampati: II Teeth: Edentulous Oral Opening: Greater than 3 - BANQUET COORDINATOR LOC: Oriented BANQUET COORDINATOR Motor: Normal RUE, Normal LUE, Normal RLE, Normal LLE, Normal Face BANQUET COORDINATOR Sensory: Normal: RUE, LUE, RLE, LLE, Face - Cardiac Rhythm: Regular Murmur: None - Pulmonary Breath Sounds: bilateral Clear Respiratory Effort: Symmetrical Anesthesia Assess/Plan ASA Score: 3 Modified Rohan Scale for Level of Consciousness: Cooperative, oriented, and tranquil Anesthetic Plan: General Monitoring Plan: Standard Monitors Recovery Plan: PACU
[2017-05-21] MEDS ORDERED: *HR* FentaNYL (PF) 100 MCG/2 ML VIAL ONE (17:21)
[2017-05-21] MEDS ORDERED: *HR* Propofol 200 MG/20 ML VIAL IVP ONE (17:21)
[2017-05-21] MEDS ORDERED: Dexamethasone 4 MG/ML VIAL ONE (17:22)
[2017-05-21] MEDS ORDERED: Ondansetron 4 MG/2 ML VIAL ONE (17:22)
[2017-05-21] MEDS ORDERED: *HR* Succinylcholine 200 MG/10 ML VIAL IVP ONE (17:22)
[2017-05-21] MEDS ORDERED: Lidocaine -MPF 2% 2 ML VIAL ONE (17:22)
[2017-05-21] MEDS ORDERED: Lidocaine -MPF 4% 5 ML AMPUL ONE (17:23)
[2017-05-21] MEDS ORDERED: Indomethacin 50 MG SUPP.RECT RC ONE (18:16)
[2017-05-21] MEDS ORDERED: Ringers Solution, Lactated 1,000 ML IVC SCH (18:30)
--- NOTE | 2017-05-21 18:59 | Anesthesia Evaluation Post Op ---
Date of Encounter: 05/21/17 Time of Encounter: 19:00 - Vital Signs Vital Signs: Vital Signs/O2 Sat/Glucose, Most Current Temp Pulse Resp BP Pulse Ox 05/21/17 18:52 98.1 F 76 18 168/96 97 05/21/17 18:42 78 20 153/96 97 05/21/17 18:32 71 20 140/79 97 05/21/17 18:22 97.4 F L 88 20 137/90 99 05/21/17 17:10 74 18 155/92 93 05/21/17 15:39 98.0 F 85 16 139/90 96 - Lungs Lungs: Clear Ascult./Percussion - Airway Airway: Non-obstructed - Cardiovascular Regular Rate - Mental Status Mental Status: Alert & Oriented, Answers Appropriately - Pain Pain Scale: 0 - Nausea Vomiting Nausea Vomiting: Not Present - Hydration Hydration: Ice chips - Discharge PostOp Status: Transfer Patient to floor
[2017-05-22] MEDS ORDERED: OXYCODONE Oral CONC 10 MG/0.5 ML ORAL.SYG PO PRN (04:40)
[2017-05-22 06:10] LABS: Basophils % 0.5 %; Hematocrit 33.3 % (35.3-44.9); Hemoglobin 11.2 g/dL (11.5-15.4); Immature Granulocytes % 1.8 % (0-4); Lymphocytes # 0.4 K/mcL (0.6-4.6); Lymphocytes % 9.3 %; Mean Corpuscular HGB Conc 33.6 g/dL (31.6-35.5); Mean Corpuscular Hemoglobin 31.9 pg (28.0-33.3); Mean Corpuscular Volume 94.9 fL (83.0-100.0); Monocytes # 0.4 K/mcL (0.0-1.3); Monocytes % 10.1 %; Neutrophils # 3.1 K/mcL (1.6-8.9); Platelet Count 190 K/mcL (140-400); Red Blood Count 3.51 M/mcL (3.82-4.97); Red Cell Distribution Width 12.1 % (11.5-14.5); Segmented Neutrophils % 78.3 %
[2017-05-22 06:41] LABS: Alanine Aminotransferase 206 Units/L (7-52); Albumin 3.1 g/dL (3.5-5.7); Albumin/Globulin Ratio 1.4 (1.1-2.2); Alkaline Phosphatase 124 Units/L (34-104); Aspartate Amino Transferase 116 Units/L (13-39); BUN/Creatinine Ratio 17 (6-26); Bilirubin,Total 1.3 mg/dL (0.3-1.0); Blood Urea Nitrogen 8 mg/dL (8-23); Calcium 7.3 mg/dL (8.6-10.3); Carbon Dioxide 21 mEq/L (23-29); Chloride 107 mEq/L (98-107); Globulin 2.2 g/dL (2.4-3.5); Glucose 116 mg/dL (70-105); Osmolality,Calculated 283 (280-300); Potassium 3.6 mEq/L (3.5-5.1); Sodium 137 mEq/L (136-145); Total Protein 5.3 g/dL (6.4-8.9); eGFR For African Americans > 60 (> 60); eGFR For Non-African Americans > 60 (> 60)
--- NOTE | 2017-05-22 10:07 | General Surgery Progress Note ---
Date of Encounter: 05/22/17 Time of Encounter: 09:00 - Assessment and Plan (1) Choledocholithiasis Current Visit: Yes Status: Acute 67F with gallstone pancreatitits, choledocholithiasis s/p ERCP, sphincterotomy and stent placement; continues to improve diet as tolerated okay to discharge home from surgery perspective will schedule for cholecystectomy discussed the procedure with the patient; Subjective Patient reports: no new complaints, feels better, pain is less, tolerating liquids well Objective Vital Signs - Last 8 Hours Temp Pulse Resp BP Pulse Ox 05/22/17 06:59 97.4 F L 71 16 115/72 96 05/22/17 05:44 98.1 F 77 17 141/89 97 Intake and Output 05/21/17 05/22/17 05/22/17 23:59 07:59 15:59 Intake Total 100 / 100 Output Total 1800 / 1800 600 / 600 Balance -1700 / -1700 -600 / -600 Intake: IV Fluids 100 / 100 Zosyn 3.375 GM In 0.9 % Sodium 100 / 100 Chloride 100 ML @ 25 mls/hr IVPB Q8H COUNT INCLUDES THE [facility] Rx#:[id number] Output: Urine 1800 / 1800 600 / 600 Other: Meal npo Percent of Meal Consumed 0% Stool Size Small Small Stool Consistency formed loose Stool Color Green # Voids 1 # Bowel Movements 1 Weight 76.43 kg Patient Weight 05/22/17 23:59 Weight 76.43 kg - General physical appearance well developed, no distress - Eyes other (no scleral icterus) - Respiratory normal expansion, normal respiratory effort - Cardiovascular Cardiovascular exam: Present: RRR - Abdomen Abdomen: Present: soft, tender (significantly decreased) - Neurologic CN 2-12 grossly intact - Psychiatric oriented to time, oriented to person, oriented to place - Labs 05/22/17 05:16 05/22/17 05:16 Diabetes panel 05/22/17 Range/Units 05:16 Sodium 137 (136-145) mEq/L Potassium 3.6 (3.5-5.1) mEq/L Chloride 107 (98-107) mEq/L Carbon Dioxide 21 L (23-29) mEq/L BUN 8 (8-23) mg/dL Creatinine 0.48 L (0.60-1.20) mg/dL Glucose 116 H (70-105) mg/dL Calcium 7.3 L (8.6-10.3) mg/dL AST 116 H (13-39) Units/L ALT 206 H (7-52) Units/L Alkaline Phosphatase 124 H (34-104) Units/L Albumin 3.1 L (3.5-5.7) g/dL Calcium panel 05/22/17 Range/Units 05:16 Calcium 7.3 L (8.6-10.3) mg/dL Albumin 3.1 L (3.5-5.7) g/dL Pituitary panel 05/22/17 Range/Units 05:16 Sodium 137 (136-145) mEq/L Potassium 3.6 (3.5-5.1) mEq/L Chloride 107 (98-107) mEq/L Carbon Dioxide 21 L (23-29) mEq/L BUN 8 (8-23) mg/dL Creatinine 0.48 L (0.60-1.20) mg/dL Glucose 116 H (70-105) mg/dL Calcium 7.3 L (8.6-10.3) mg/dL Adrenal panel 05/22/17 Range/Units 05:16 Sodium 137 (136-145) mEq/L Potassium 3.6 (3.5-5.1) mEq/L Chloride 107 (98-107) mEq/L Carbon Dioxide 21 L (23-29) mEq/L BUN 8 (8-23) mg/dL Creatinine 0.48 L (0.60-1.20) mg/dL Glucose 116 H (70-105) mg/dL Calcium 7.3 L (8.6-10.3) mg/dL Total Bilirubin 1.3 H (0.3-1.0) mg/dL AST 116 H (13-39) Units/L ALT 206 H (7-52) Units/L Alkaline Phosphatase 124 H (34-104) Units/L Albumin 3.1 L (3.5-5.7) g/dL - VTE Documentation of Mechanical Device: Intermittent pneumatic compression device Consult Discharge Plan - Plan Referrals: Cherry Collins MD [Primary Care Provider] -
[2017-05-22 11:37] VITALS: BP 132/83
[2017-05-22] MEDS: 0.9 % Sodium Chloride 1,000 ML IVC SCH (11:38)
--- NOTE | 2017-05-22 13:00 | Discharge Summary ---
- NOTES TO OUTPATIENT PROVIDER Notes to Outpatient Provider: Patient to follow-up with surgery and gastroenterology after discharge for cholecystectomy and stent retrieval respectively. 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 Montiel is a 67 year old female patient who was hospitalized here with acute abdominal pain and diagnosed with acute pancreatitis with possible cholecystitis. She also had some abnormal EKG changes and so cardiology was also consulted. She did have hypokalemia on presentation. She was kept nothing by mouth and treated with IV fluids and pain medications. Surgery was consulted for further evaluation. Patient underwent CT scan of the abdomen and pelvis which suggested presence of choledocholithiasis and cholecystitis. These findings were confirmed with ultrasound of the abdomen. Surgery recommended GI evaluation for possible ERCP. Patient underwent this procedure yesterday and a biliary stent was placed after stone retrieved. Since then patient is doing much better. Her pain has resolved. She is tolerating diet well. Surgery recommends outpatient cholecystectomy in 1 week. She will also need to follow up with GI in 2 months for removal of temporary biliary stent. Cardiology evaluated her EKG and an echocardiogram. Patient has normal EF of 60 % with mild left ventricular diastolic dysfunction. Her EKG findings were concerning for right ventricular conduction delay/Brugada pattern. She has been recommended to follow up with electrophysiology as an outpatient. Discharge discussed with: patient, family, lean consultant - Time Spent with Patient Total time spent providing and/or coordinating discharge services: Greater than 30 minutes (32 min) - Discharge Medications Home Medications: Biotin 1 mg PO DAILY 05/19/17 [History] Cranberry Fruit Extract [Cranberry] 500 mg PO DAILY 05/19/17 [History] Allergies/Adverse Reactions: 3 Allergy/AdvReac Type Severity Reaction Status Date / Time No Known Allergies Allergy Verified 05/18/17 23:52 Date of admission: 05/19/17 11:29 Primary care physician: Cherry Collins MD Consults: 05/20/17 10:35 Consult to Gastroenterology [CONS] Routine Consulting Provider: Gastroenterology Evette Reason for Consult: Choledocholithiasis/needs ERCP Call Completed: No Discharging clinician: Erin Chavez Anticipated date of discharge: 05/22/17 - Constitutional Vitals: Temp Pulse Resp BP Pulse Ox 97.4 F L 80 14 132/83 98 05/22/17 06:59 05/22/17 11:37 05/22/17 11:37 05/22/17 11:37 05/22/17 11:37 General appearance: Present: A&O X 3, pleasant, no acute distress - Neck Neck exam general surgery: Present: supple, trachea midline. Absent: lymphadenopathy - Respiratory Respiratory exam: Present: CTAB. Absent: accessory muscle use, rales, rhonchi, wheezes - GI/Abdominal GI/Abdominal exam: Present: normal bowel sounds, soft, no peritoneal signs. Absent: distended, tenderness - Patient Status Disposition: Home, Self-Care Condition: Good Functional capacity at discharge: independent ambulation Overall status at discharge: patient is progressing back to baseline - Discharge Instructions Instructions: Pancreatitis (DC) Follow Up With: Cherry Collins MD [Primary Care Provider] - (in 1-2 weeks) Juan Goel MD [Partnered Physician] - (2-3 weeks) Brett Reed MD [Non-Partnered Physician] - (1 week) Gunjan Rhodes MD [Partnered Physician] - (2 months) - Diet and Activity Activity: increase activity as tolerated Diet: low fat, low cholesterol, low salt diet - VTE Documentation of Mechanical Device: Intermittent pneumatic compression device
--- NOTE | 2017-05-25 07:52 | Electrocardiograph Report ---
[place] [id number] Test Date: 2017-05-19 Pat Name: Nereida Montiel Department: 104 Room: 2A Gender: F Ranch Rider: : 1950 Requested By: Jose Delgadillo Order Number: [id number] Reading MD: Devin Pina DO Measurements Intervals [place] Rate: 82 P: -59 ME: 161 QRS: -10 QRSD: 101 T: 32 QT: 366 QTc: 404 Interpretive Statements SINUS RHYTHM POSSIBLE TYPE 1 BRUGADA PATTERN Electronically Signed On 05-25-2017 7:50:45 EST by Devin Pina DO
--- NOTE | 2017-05-25 07:53 | Electrocardiograph Report ---
[place] [id number] Test Date: 2017-05-19 Pat Name: Nereida Montiel Department: 104 Room: 2A Gender: F Elevator Installer: : 1950 Requested By: Filiberto Graham Order Number: [id number] Reading MD: Devin Pina DO Measurements Intervals [place] Rate: 79 P: -86 MI: 159 QRS: -9 QRSD: 105 T: 42 QT: 372 QTc: 407 Interpretive Statements SINUS RHYTHM POSSIBLE BRUGADA PATTERN Electronically Signed On 05-25-2017 7:51:17 EST by Devin Pina DO
== END 2017-05-22 14:15 | disposition home or self-care (01) | DRG 444 ==
LOC: EMEROO 23:42 → 2ANU 23:42 → SUATTDRO 05-19 11:29
PROVIDERS: ADMIT Internal Medicine; ATTEND Internal Medicine